=== PATIENT | female | born 1990 | race Two or more races ===

== ENCOUNTER 2021-02-07 04:30 | Inpatient (IN) | payer OTHER ==
[~2021-02-07] VITALS: Ht 157.5 cm; Wt 97.1 kg
[2021-02-07] MEDS ORDERED: PRENATAL TABLE1 EAC1 PO (04:47)
[2021-02-07] MEDS ORDERED: IRON236 MG PO (04:49)
== END 2021-02-09 13:42 | disposition home or self-care (01) | DRG 807 ==
LOC: LDR 04:30 → SURG-SUITE 04:30
PROVIDERS: ADMIT Specialist; ATTEND Specialist
PROC: 10E0XZZ Delivery of Products of Conception, External Approach (ICD-10-PCS; principal; 2021-02-07)
PROC: 10907ZC Drainage of Amniotic Fluid, Therapeutic from Products of Conception, Via Natural or Artificial Opening (ICD-10-PCS; 2021-02-07)
PROC: 4A1HXFZ Monitoring of Products of Conception, Cardiac Rhythm, External Approach (ICD-10-PCS; 2021-02-07)
DX: O80 Encounter for full-term uncomplicated delivery (principal); Z37.0 Single live birth; Z3A.38 38 weeks gestation of pregnancy; Z20.822 Contact with and (suspected) exposure to COVID-19